=== PATIENT | male | born 1980 | race African-American/Black ===

== ENCOUNTER 2021-01-14 23:46 | Emergency (ER) | payer OTHER ==
[~2021-01-14] VITALS: Ht 175.3 cm; Wt 86.1 kg
[2021-01-15] MEDS ORDERED: LORazepam 2 MG/ML, 1ML ONE (00:11)
[2021-01-15] MEDS ORDERED: LORazepam 2 MG/ML, 1ML IVPush ONE (00:30)
[2021-01-15 00:32] LABS: ALBUMIN 3.4 g/dL (3.4-5.0); ANION GAP 8 mmol/L (5-15); CALCIUM 8.3 mg/dL (8.5-10.1); CHLORIDE 107 mmol/L (98-107)
[2021-01-15 00:35] LABS: BASOPHILS % (AUTO) 1 % (0-1); EOSINOPHILS % (AUTO) 2 % (1-7); LYMPHOCYTES % (AUTO) 35 % (22-44); MEAN CORPUSCULAR HEMOGLOBIN 32.4 pg (27.5-34.5); MEAN CORPUSCULAR HGB CONC 35.4 g/dL (33.2-36.2); MEAN PLATELET VOLUME 6.3 fL (7.4-10.4); MONOCYTES % (AUTO) 9 % (2-9); NEUTROPHILS % (AUTO) 54 % (42-75); PLATELET COUNT 388 x10^3/uL (130-400); RED BLOOD COUNT 4.82 x10^6/uL (4.38-5.82); RED CELL DISTRIBUTION WIDTH 13.7 % (9.4-14.8)
[2021-01-15] MEDS ORDERED: DIVALPROEX 250 MG TAB.ER.24H PO ONE (01:30)
--- NOTE | 2021-01-15 01:34 | NUR ---
LINDA AT BS. RBS 110.
[2021-01-15 01:57] VITALS: BP 114/68
== END 2021-01-15 01:59 ==
LOC: ED 01-15 01:00
DX: G40.919 Epilepsy, unspecified, intractable, without status epilepticus (principal); F10.129 Alcohol abuse with intoxication, unspecified; R51.9 Headache, unspecified; Y90.0 Blood alcohol level of less than 20 mg/100 ml
CPT/HCPCS: 36415; 70450; 80048; 80164; 80320; 82040; 82962; 85025; 93005; 96374; 99285; J2060; G0480